=== PATIENT | female | born 1995 | race Caucasian/White ===

== ENCOUNTER 2017-08-10 12:03 | Observation (INO) | payer MEDICAID, OTHER ==
[~2017-08-10] VITALS: Ht 157.5 cm; Wt 50.0 kg
[2017-08-10] VITALS (8 sets, daily range): BP systolic 120–137; BP diastolic 67–79
[2017-08-10 12:43] LABS: BASOPHILS % (AUTO) 0.4 % (0-1); EOSINOPHILS # (AUTO) 0.1 X10'3 (0-0.9); EOSINOPHILS % (AUTO) 1.9 % (0-6); HEMATOCRIT 38.2 % (35.0-45.0); HEMOGLOBIN 12.9 g/dl (12.0-16.0); LYMPHOCYTES # (AUTO) 1.3 X10'3 (1.1-4.8); LYMPHOCYTES % (AUTO) 21.3 % (21-51); MEAN CORPUSCULAR HEMOGLOBIN 30.5 PG (27.0-31.0); MEAN CORPUSCULAR HGB CONC 33.9 % (33.0-36.5); MEAN CORPUSCULAR VOLUME 90.2 FL (78-98); MEAN PLATELET VOLUME 9.3 FL (7.4-10.4); MONOCYTES # (AUTO) 0.3 X10'3 (0-0.9); MONOCYTES % (AUTO) 5.1 % (2-12); NEUTROPHILS # (AUTO) 4.5 X10'3 (1.8-7.7); NEUTROPHILS % (AUTO) 71.3 % (42-75); PLATELET COUNT 231 X10'3 (140-440); RED BLOOD COUNT 4.24 X10'6 (4.20-5.60); RED CELL DISTRIBUTION WIDTH 13.7 % (11.5-14.5); WHITE BLOOD COUNT 6.3 X10'3 (4.5-11.0)
[2017-08-10 12:44] LABS: CLARITY,URINE SLIGHTLY CLOUDY (Clear); COLOR,URINE YELLOW (Yellow); GLUCOSE, URINE NEGATIVE (Neg); KETONES,URINE 40 mg/dl (Neg); LEUKOCYTE ESTERASE ,URINE TRACE (Neg); NITRITES, URINE NEGATIVE (Neg); OCCULT BLOOD,URINE LARGE (Neg); PROTEIN,URINE NEGATIVE (Neg); UROBILINOGEN,URINE 0.2 E.U/dL (0.2-1.0)
[2017-08-10 12:45] LABS: UA COLLECTION TYPE CLN CATCH MIDSTREAM
[2017-08-10 12:53] LABS: MUCUS STRANDS FEW /LPF (Neg); SQUAMOUS EPITHELIAL CELL,UR MANY /LPF (FEW)
[2017-08-10 12:54] LABS: BACTERIA,URINE 1+ /HPF (Neg); RBC,URINE 0-2 /HPF (0-2); WBC,URINE 0-4 /HPF (0-4)
[2017-08-10 12:54] LABS: INR 1.1 INR; PROTHROMBIN TIME 11.4 SECONDS (9.0-12.0)
[2017-08-10] MEDS ORDERED: normal saline 1000ML IV soln IVB ONE (12:55)
[2017-08-10] MEDS ORDERED: BUPIVAcaine/PF 7.5mg/ml (0.75%) 10ml vial ONE (12:55)
[2017-08-10] MEDS ORDERED: morphine 4 MG/ML inj SYRINge IV ONE (12:55)
[2017-08-10] MEDS ORDERED: morphine 4 MG/ML inj SYRINge IV PRN ×5 (12:55→13:40)
[2017-08-10] MEDS ORDERED: ondansetron/PF 4mg/2ml inj IV ONE (12:55)
[2017-08-10] MEDS ORDERED: ceFAZolin 1000mg inj ONE (12:55)
[2017-08-10 12:59] LABS: ALANINE AMINOTRANSFERASE 23 U/L (12-78); ALBUMIN 4.4 G/DL (3.4-5.0); ALBUMIN/GLOBULIN RATIO 1.2 (1.1-1.5); ALKALINE PHOSPHATASE 41 IU/L (20-180); ANION GAP 12 (8-16); ASPARTATE AMINO TRANSFERASE 14 U/L (10-37); BILIRUBIN,TOTAL 1.2 MG/DL (0.1-1.0); BLOOD UREA NITROGEN 8 MG/DL (7-18); BUN/CREATININE RATIO 10.5 (6.6-38.0); CALCIUM 9.3 MG/DL (8.5-10.1); CHLORIDE 103 MMOL/L (99-107); CREATININE 0.76 MG/DL (0.40-0.90); GLUCOSE 85 MG/DL (70-104); POTASSIUM 3.7 MMOL/L (3.5-5.1); SODIUM 142 MMOL/L (135-145); TOTAL CARBON DIOXIDE 26.6 MMOL/L (24-32); TOTAL PROTEIN 8.1 G/DL (6.4-8.2); eGFR > 90 ML/MIN
[2017-08-10 13:10] LABS: LIPASE 127 U/L (73-393); MAGNESIUM 2.1 MG/DL (1.5-2.4)
[2017-08-10] MEDS ORDERED: ringers solution, lacted 1,000 ML IV SCH (13:21)
[2017-08-10] MEDS ORDERED: hydrALAZINE 20mg/ml inj. IV PRN (13:25)
[2017-08-10] MEDS ORDERED: ondansetron/PF 4mg/2ml inj IV PRN ×2 (13:25→13:40)
[2017-08-10] MEDS ORDERED: labetalol 20mg/4ml (5mg/ml) syringe IV PRN (13:25)
[2017-08-10] MEDS ORDERED: fentaNYL/PF 50MCG/1 ML 2ML syringe IV PRN (13:25)
[2017-08-10 13:29] LABS: URINE HCG NEGATIVE (NEG)
[2017-08-10] MEDS ORDERED: acetaminophen 325mg tablet PO PRN (13:40)
[2017-08-10] MEDS ORDERED: magnesium hydroxide 30ml (MOM) UD suspension PO PRN (13:40)
[2017-08-10] MEDS ORDERED: fentaNYL/PF 50MCG/1 ML 2ML syringe ONE (13:52)
[2017-08-10] MEDS ORDERED: propofol inj 20 ML IV ONE (13:52)
[2017-08-10] MEDS ORDERED: midazolam 2 mg/2 ml injection ONE (13:52)
[2017-08-10] MEDS ORDERED: ondansetron/PF 4mg/2ml inj ONE (13:53)
[2017-08-10] MEDS ORDERED: glycopyrrolate 0.2mg/ml inj ONE (13:53)
[2017-08-10] MEDS ORDERED: LIDOcaine 2% (20mg/ml) 5ml vial ONE (13:53)
[2017-08-10] MEDS ORDERED: rocuronium 10mg/ml inj IV ONE (13:53)
[2017-08-10] MEDS ORDERED: dexamethasone sod phosphate 4mg/ml inj. ONE (13:55)
[2017-08-10] MEDS ORDERED: neostigmine methylsulfate 1 MG/ML 10ml vial ONE (13:55)
[2017-08-10] MEDS ORDERED: sevoflurane 250ml liquid IH ONE (13:55)
[2017-08-10] MEDS ORDERED: morphine 10mg/ml inj. ONE (14:42)
[2017-08-10] MEDS: fentaNYL/PF 50MCG/1 ML 2ML syringe IV PRN ×2 (15:31→15:38)
== END 2017-08-10 16:15 | disposition home or self-care (01) ==
LOC: ER 12:04 → ED HOLD 13:40
PROVIDERS: ADMIT Family Medicine; ATTEND Family Medicine
DX: K81.1 Chronic cholecystitis (principal); F32.9 Major depressive disorder, single episode, unspecified
CPT/HCPCS: 36415; 47562; 80053; 81001; 81025; 83690; 83735; 85025; 85610; 86885; 86900; 86901; 96374; 96375; 96376; 99285; G0378; J0690; J1100; J2001; J2250; J2270; J2405; J2704; J2710; J3010; J3490; J7030; J7120; A7000

== ENCOUNTER 2022-04-22 01:51 | Emergency (ER) | payer MEDICAID ==
[~2022-04-22] VITALS: Ht 157.5 cm; Wt 55.0 kg
--- NOTE | 2022-04-22 03:54 | NUR ---
pelvic tray set up
[2022-04-22 03:56] LABS: CLARITY,URINE CLEAR (Clear); COLOR,URINE YELLOW (Yellow); GLUCOSE, URINE NEGATIVE (Neg); KETONES,URINE NEGATIVE (Neg); LEUKOCYTE ESTERASE ,URINE NEGATIVE (Neg); NITRITES, URINE NEGATIVE (Neg); OCCULT BLOOD,URINE MODERATE (Neg); PROTEIN,URINE NEGATIVE (Neg); URINE HCG POSITIVE (NEG); UROBILINOGEN,URINE 0.2 E.U/dL (0.2-1.0)
[2022-04-22 04:01] LABS: UA COLLECTION TYPE CLN CATCH MIDSTREAM
[2022-04-22 04:02] LABS: SQUAMOUS EPITHELIAL CELL,UR FEW /LPF (FEW)
[2022-04-22 04:03] LABS: BACTERIA,URINE NONE SEEN /HPF (Neg); WBC,URINE 0-4 /HPF (0-4)
[2022-04-22 04:06] LABS: BASOPHILS % (AUTO) 0.4 % (0-1); EOSINOPHILS # (AUTO) 0.3 X10'3 (0-0.9); EOSINOPHILS % (AUTO) 3.1 % (0-6); HEMATOCRIT 33.7 % (35.0-45.0); HEMOGLOBIN 11.2 g/dl (12.0-16.0); LYMPHOCYTES # (AUTO) 2.1 X10'3 (1.1-4.8); MEAN CORPUSCULAR HEMOGLOBIN 30.5 PG (27.0-31.0); MEAN CORPUSCULAR HGB CONC 33.2 g/dL (33.0-36.5); MEAN CORPUSCULAR VOLUME 91.8 FL (78-98); MEAN PLATELET VOLUME 8.9 FL (7.4-10.4); MONOCYTES # (AUTO) 0.7 X10'3 (0-0.9); MONOCYTES % (AUTO) 6.9 % (2-12); NEUTROPHILS # (AUTO) 6.4 X10'3 (1.8-7.7); NEUTROPHILS % (AUTO) 67.6 % (42-75); PLATELET COUNT 254 X10'3 (140-440); RED BLOOD COUNT 3.68 X10'6 (4.20-5.60); WHITE BLOOD COUNT 9.5 X10'3 (4.5-11.0)
[2022-04-22 04:14] LABS: APTT 26 SECONDS (22-32)
[2022-04-22 04:17] LABS: ALANINE AMINOTRANSFERASE 12 U/L (12-78); ALBUMIN 3.3 G/DL (3.4-5.0); ALBUMIN/GLOBULIN RATIO 1.1 (1.1-1.5); ALKALINE PHOSPHATASE 33 IU/L (46-116); ANION GAP 9 (8-16); ASPARTATE AMINO TRANSFERASE 14 U/L (10-37); BILIRUBIN,TOTAL 0.7 MG/DL (0.1-1.0); BLOOD UREA NITROGEN 7 MG/DL (7-18); BUN/CREATININE RATIO 15.9 (6.6-38.0); CALCIUM 8.7 MG/DL (8.5-10.1); CHLORIDE 107 MMOL/L (99-107); CREATININE 0.44 MG/DL (0.40-0.90); GLUCOSE 98 MG/DL (70-104); POTASSIUM 3.7 MMOL/L (3.5-5.1); SODIUM 137 MMOL/L (135-145); TOTAL CARBON DIOXIDE 21.3 MMOL/L (24-32); TOTAL PROTEIN 6.4 G/DL (6.4-8.2); eGFR > 90 ML/MIN
--- NOTE | 2022-04-22 04:21 | NUR ---
Brittanie RN chaperoned Dr Bentley pelvic exam
[2022-04-22 04:39] LABS: BETA HCG,QUANTITATIVE 118114 mIU/ml
[2022-04-22] MEDS ORDERED: RHO(D) immune globulin 1,500 units (300 MCG) syringe IM ONE (05:25)
[2022-04-22 06:01] VITALS: BP 126/68
== END 2022-04-22 06:04 | disposition home or self-care (01) ==
LOC: ER 01:52
DX: O20.0 Threatened abortion (principal); Z3A.10 10 weeks gestation of pregnancy; Z79.899 Other long term (current) drug therapy
CPT/HCPCS: 36415; 80053; 81001; 81025; 84702; 85025; 85610; 85730; 86885; 86900; 86901; 96372; 99284; J2790